=== PATIENT | female | born 1960 | race American Indian/Alaskan Native ===

== ENCOUNTER 2019-02-09 17:18 | Emergency (ER) | payer MEDICARE, OTHER ==
[2019-02-09 17:19] VITALS: BMI 35.4
[2019-02-09 18:19] LABS: EOS # 0.5 K/uL (0.0-0.7); EOS % 6.6 % (0.0-4.0); HEMOGLOBIN 10.3 g/dL (11.0-16.0); LYMPH # 2.5 K/uL (1.0-4.3); LYMPH % 36.1 % (20.0-40.0); MEAN CELL VOLUME 85.6 fL (81.0-99.0); MEAN CORPUSCULAR HEMOGLOBIN 27.2 pg (27.0-31.0); MEAN CORPUSCULAR HGB CONC 31.8 g/dL (33.0-37.0); MEAN PLATELET VOLUME 7.8 fL (7.2-11.7); MONO % 14.8 % (0.0-10.0); NEUT % 42.5 % (50.0-75.0); RBC 3.79 Mil/uL (3.80-5.20); RED CELL DISTRIBUTION WIDTH 14.8 % (11.5-14.5)
[2019-02-09 18:32] LABS: BLOOD UREA NITROGEN 12 mg/dL (7-17); CALCIUM 9.2 mg/dl (8.6-10.4); GFR NON-AFRICAN AMERICAN > 60
[2019-02-09 18:33] LABS: ALB/GLOB RATIO 1.1 (1.0-2.1); ALBUMIN 4.1 g/dL (3.5-5.0); ALT/SGPT < 6 U/L (9-52); AST/SGOT 40 U/L (14-36)
[2019-02-09 18:40] LABS: B-TYPE NATRIURETIC PEPTIDE 264 pg/mL (0-900)
[2019-02-09 19:20] LABS: SQUAMOUS EPITHIAL < 1 /hpf (0-5); URINE BACTERIA RARE (<OCC); URINE BILIRUBIN NEGATIVE (NEGATIVE); URINE BLOOD NEGATIVE (NEGATIVE); URINE CLARITY Clear (Clear); URINE COLOR Straw (YELLOW); URINE GLUCOSE (UA) NORMAL (Normal); URINE LEUKOCYTE ESTERASE NEG Leu/uL (Negative); URINE PROTEIN NEGATIVE (NEGATIVE); URINE UROBILINOGEN NORMAL mg/dL (0.2-1.0)
--- NOTE | 2019-02-09 19:27 | C.PDOC ---
History Of Present Illness 58 y/o female presents to the ER complaining of worsening left leg edema and swelling. 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 Patient reports that she is only able to put on prosthetic after she applies compression to right BKA stump. She notes that she has excess fluid intake. Denies having fever,chills, CP,SOB, nausea, and vomiting. Time Seen by Provider: 02/09/19 18:24 Chief Complaint (Nursing): Lower Extremity Problem/Injury History Per: Patient History/Exam Limitations: no limitations Onset/Duration Of Symptoms: Days Current Symptoms Are (Timing): Still Present Severity: Moderate Past Medical History Reviewed: Historical Data, Nursing Documentation, Vital Signs Vital Signs: Last Vital Signs Temp 97.8 F 02/09/19 17:22 Pulse 75 02/09/19 17:22 Resp 18 02/09/19 17:22 BP 136/80 02/09/19 17:22 Pulse Ox 100 02/09/19 17:22 - Medical History PMH: HTN, Rheumatoid Arthritis Surgical History: Pacemaker - [facility] Procedures COLONOSCOPY (11/17/03) ESOPHAGOGASTRODUODENOSCOPY [EGD] W/CLOSED BIOPSY (10/18/03) PHYSICAL THERAPY NEC (07/30/15) VENOUS CATHETERIZATION NEC (10/19/13) Family History: States: No Known Family Hx - Social History Hx Tobacco Use: Yes (Hx) Hx Alcohol Use: No Hx Substance Use: No - Immunization History Hx Tetanus Toxoid Vaccination: No Hx Influenza Vaccination: No Hx Pneumococcal Vaccination: No Review Of Systems Except As Marked, All Systems Reviewed And Found Negative. Constitutional: Negative for: Fever, Chills Cardiovascular: Negative for: Chest Pain Respiratory: Negative for: Shortness of Breath Gastrointestinal: Negative for: Nausea, Vomiting Musculoskeletal: Positive for: Other (left leg edema and swelling) Physical Exam - Physical Exam Appears: No Acute Distress, Other (obese) Skin: Normal Color, Warm, Dry Head: Atraumatic, Normacephalic Eye(s): bilateral: Normal Inspection Nose: Normal Oral Mucosa: Moist Neck: Supple, Other (JVD) Chest: Symmetrical Cardiovascular: Rhythm Regular, Murmur (S3 Murmur) Respiratory: Normal Breath Sounds, No Rales, No Rhonchi, No Wheezing Gastrointestinal/Abdominal: Soft, No Tenderness, No Guarding, No Rebound Extremity: Normal ROM, Other (4/4 pitting edema to LLE, edema to right BKA stump, left toes with various states of misalignment without infection) Neurological/Psych: Oriented x3, Normal Speech ED Course And Treatment - Laboratory Results Result Diagrams: 02/09/19 18:16 02/09/19 18:16 Lab Results: NT-Pro-B Natriuret Pep 264 pg/mL (0-900) 02/09/19 18:16 Total Bilirubin 0.8 mg/dL (0.2-1.3) 02/09/19 18:16 AST 40 U/L (14-36) H 02/09/19 18:16 ALT < 6 U/L (9-52) L D 02/09/19 18:16 Alkaline Phosphatase 122 U/L (38-126) 02/09/19 18:16 Total Protein 7.7 g/dL (6.3-8.3) 02/09/19 18:16 Albumin 4.1 g/dL (3.5-5.0) 02/09/19 18:16 Globulin 3.6 gm/dL (2.2-3.9) 02/09/19 18:16 Albumin/Globulin Ratio 1.1 (1.0-2.1) 02/09/19 18:16 Urine Color Straw (YELLOW) 02/09/19 18:45 Urine Clarity Clear (Clear) 02/09/19 18:45 Urine pH 5.0 (5.0-8.0) 02/09/19 18:45 Ur Specific [place] 1.003 (1.003-1.030) 02/09/19 18:45 Urine Protein Negative mg/dL (NEGATIVE) 02/09/19 18:45 Urine Glucose (UA) Normal mg/dL (Normal) 02/09/19 18:45 Urine Ketones Negative mg/dL (NEGATIVE) 02/09/19 18:45 Urine Blood Negative (NEGATIVE) 02/09/19 18:45 Urine Nitrate Negative (NEGATIVE) 02/09/19 18:45 Urine Bilirubin Negative (NEGATIVE) 02/09/19 18:45 Urine Urobilinogen Normal mg/dL (0.2-1.0) 02/09/19 18:45 Ur Leukocyte Esterase Neg [place]/uL (Negative) 02/09/19 18:45 Ur Squamous Epith Cells < 1 /hpf (0-5) 02/09/19 18:45 Urine Bacteria Rare (<OCC) 02/09/19 18:45 Lab Interpretation: Abnormal (trop/bnp neg. d-dimer > 5000) O2 Sat by Pulse Oximetry: 100 (RA) Pulse Ox Interpretation: Normal - Radiology CXR: Interpreted by Me CXR Interpretation: Yes: Other (+ pacer ) Reevaluation Time: 19:25 Reassessment Condition: Improved - Physician Consult Information Outcome Of Conversation: 1899: d/w Dr. Charles covering Dr. Brooke[facility] Service, records reviewed. Pacer for AV block. 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 Charles suggested to give dose of lasix and f/u in [facility] in [address] Brooke's [facility]. d-dimer >5000 prob related to RA and not DVT as edema symmetrical and related to PO fluid intake venous US not available will f/u with PMD/Dr. Brooke 2 days for re-eval Disposition Doctor Will See Patient In The: Office Counseled Patient/Family Regarding: Studies Performed, Diagnosis - Disposition Referrals: [facility] [Outside] [facility] [Outside] Jose Roberto Brooke MD [Staff Provider] - Disposition: HOME/ ROUTINE Disposition Time: 19:30 Condition: GOOD Additional Instructions: avoid excess water do NOT drink water/fluids beyond normal meals Call Dr. Brooke's office for f/u appt @ [facility] on Thursday (2 days) you were given Lasix 20 mg IV (will cause urination excess for about 6 hours) Instructions: Hyponatremia (DC), Normocytic Normochromic Anemia (DC) Forms: [employer] (German) - Clinical Impression Clinical Impression: Leg edema - Scribe Statement The provider has reviewed the documentation as recorded by the [employer] Provider Attestation: All medical record entries made by the Scribe were at my direction and personally dictated by me. I have reviewed the chart and agree that the record accurately reflects my personal performance of the history, physical exam, medical decision making, and the department course for this patient. I have also personally directed, reviewed, and agree with the discharge instructions and disposition.
[2019-02-09 19:45] LABS: INR 1.1; PARTIAL THROMBOPLASTIN TIME 33 SECONDS (21-34); PROTHROMBIN TIME 12.1 SECONDS (9.7-12.2)
[2019-02-09 19:56] VITALS: BP 144/63; PULSE 97; RESP 20; TEMP 97.5
[2019-02-09 20:00] LABS: D DIMER > 5250 ng/mlDDU (0-243)
[2019-02-09 20:05] VITALS: O2SAT 100
--- NOTE | 2019-02-10 10:32 | RAD ---
HISTORY: SOB COMPARISON: Chest x-ray performed 04/10/15 TECHNIQUE: Chest PA and lateral FINDINGS: Examination limited by habitus and hypoinflation. LUNGS: No focal consolidation. Please note that chest x-ray has limited sensitivity for the detection of pulmonary masses. PLEURA: No significant pleural effusion identified. No definite pneumothorax . CARDIOVASCULAR: Dual lead left-sided pacemaker. Cardiomegaly. No atherosclerotic calcification present. OSSEOUS STRUCTURES: No acute osseous abnormality identified. VISUALIZED UPPER ABDOMEN: Unremarkable. OTHER FINDINGS: None. IMPRESSION: No focal consolidation.
== END 2019-02-09 20:01 | disposition home or self-care (01) ==
LOC: C.ER 17:18
DX: R60.0 Localized edema (principal); I10 Essential (primary) hypertension; M06.9 Rheumatoid arthritis, unspecified; Z72.0 Tobacco use; Z95.0 Presence of cardiac pacemaker
CPT/HCPCS: 36415; 71046; 80053; 81001; 83880; 84484; 85025; 85378; 85610; 85730; 93005; 96374; 99284; J1940